=== PATIENT | male | born 1985 | race Caucasian/White ===

== ENCOUNTER 2019-06-04 12:48 | Emergency (ER) | payer OTHER ==
[~2019-06-04] VITALS: Ht 185.4 cm; Wt 101.6 kg
[2019-06-04 13:44] LABS: ABSOLUTE NEUTROPHILS 2.7 thou/uL (1.4-8.2); BASOPHILS 0.7 % (0.0-2.0); EOSINOPHILS 0.5 % (0.0-3.0); HEMATOCRIT 45.9 % (42.0-52.0); HEMOGLOBIN 15.1 gm/dL (14.0-18.0); LYMPHOCYTES 16.2 % (24.0-44.0); MCH 27.1 pg (26.0-34.0); MCHC 32.8 g/dL (28.0-37.0); MCV 82.8 fL (80.0-100.0); MONOCYTES 11.9 % (1.0-8.0); PLATELET COUNT 217 thou/uL (150-400); POLYS 70.7 % (36.0-66.0); RBC 5.55 mil/uL (4.50-6.00); RDW 13.5 % (10.5-14.5); WBC 3.8 thou/uL (4.0-11.0)
[2019-06-04 13:48] VITALS: BP 106/73
[2019-06-04 13:57] LABS: ALBUMIN 3.8 g/dL (3.4-5.0); CREATININE 1.3 mg/dL (0.7-1.3); POTASSIUM 3.5 mmol/L (3.5-5.1); TOTAL BILIRUBIN 0.3 mg/dL (<0.1-1.0); TOTAL PROTEIN 8.6 g/dL (6.4-8.2)
[2019-06-04 14:04] LABS: CALCIUM 8.8 mg/dL (8.5-10.1)
[2019-06-04] MEDS ORDERED: ONDANSETRON HCL4 M2 PO (14:18)
[2019-06-04] MEDS ORDERED: TESSALON PERLE100 MG PO (14:19)
[2019-06-04 14:48] LABS: URINE BILIRUBIN NEGATIVE (Negative); URINE BLOOD NEGATIVE (Negative); URINE CLARITY CLEAR; URINE COLOR YELLOW; URINE GLUCOSE-RANDOM* NEGATIVE (Negative); URINE KETONES NEGATIVE (Negative); URINE LEUKOCYTES-REFLEX NEGATIVE (Negative); URINE NITRITE-REFLEX NEGATIVE (Negative); URINE PROTEIN (DIPSTICK) NEGATIVE (Negative); URINE SPECIFIC GRAVITY <= 1.005 (1.005-1.035); URINE UROBILINOGEN 0.2 E.U./dl (0.2-1.0)
== END 2019-06-04 15:01 | disposition home or self-care (01) ==
LOC: ER 12:48
PROVIDERS: Physician Assistant
DX: R11.2 Nausea with vomiting, unspecified (principal); R05 Cough; R10.13 Epigastric pain; Z88.6 Allergy status to analgesic agent; Z91.013 Allergy to seafood

== ENCOUNTER 2019-10-16 17:03 | Emergency (ER) | payer OTHER ==
[~2019-10-16] VITALS: Ht 188 cm; Wt 98.4 kg
[~2019-10-16 17:03] MED LIST: ONDANSETRON HCL4 M2 PO; TESSALON PERLE100 MG PO
[2019-10-16 17:30] LABS: URINE BILIRUBIN NEGATIVE (Negative); URINE BLOOD NEGATIVE (Negative); URINE CLARITY CLEAR; URINE COLOR YELLOW; URINE GLUCOSE-RANDOM* NEGATIVE (Negative); URINE KETONES NEGATIVE (Negative); URINE LEUKOCYTES-REFLEX NEGATIVE (Negative); URINE NITRITE-REFLEX NEGATIVE (Negative); URINE PROTEIN (DIPSTICK) NEGATIVE (Negative); URINE SPECIFIC GRAVITY >= 1.030 (1.005-1.035); URINE UROBILINOGEN 0.2 E.U./dl (0.2-1.0)
[2019-10-16 17:45] LABS: ABSOLUTE NEUTROPHILS 3.5 thou/uL (1.4-8.2); BASOPHILS 0.7 % (0.0-2.0); EOSINOPHILS 1.4 % (0.0-3.0); HEMATOCRIT 44.7 % (42.0-52.0); HEMOGLOBIN 15.6 gm/dL (14.0-18.0); LYMPHOCYTES 28.4 % (24.0-44.0); MCH 29.1 pg (26.0-34.0); MCHC 34.8 g/dL (28.0-37.0); MCV 83.6 fL (80.0-100.0); PLATELET COUNT 244 thou/uL (150-400); POLYS 62.5 % (36.0-66.0); RBC 5.35 mil/uL (4.50-6.00); RDW 14.1 % (10.5-14.5); WBC 5.6 thou/uL (4.0-11.0)
[2019-10-16 17:55] LABS: CALCIUM 8.7 mg/dL (8.5-10.1); CREATININE 1.1 mg/dL (0.7-1.3)
[2019-10-16 18:01] LABS: TOTAL BILIRUBIN 0.5 mg/dL (<0.1-1.0); TOTAL PROTEIN 8.3 g/dL (6.4-8.2)
[2019-10-16] MEDS ORDERED: NAPROSYN500 MG PO (18:46)
[2019-10-16] MEDS ORDERED: NORFLEX100 MG PO (18:46)
[2019-10-16 19:18] VITALS: BP 122/101
== END 2019-10-16 19:15 | disposition home or self-care (01) ==
LOC: ER 17:03
PROVIDERS: Physician Assistant
DX: S29.012A Strain of muscle and tendon of back wall of thorax, initial encounter (principal); Z88.6 Allergy status to analgesic agent; Z91.013 Allergy to seafood; X50.0XXA Overexertion from strenuous movement or load, initial encounter; Y93.89 Activity, other specified; Y92.89 Other specified places as the place of occurrence of the external cause; Y99.8 Other external cause status

== ENCOUNTER 2020-05-22 22:58 | Emergency (ER) | payer OTHER ==
[~2020-05-22] VITALS: Ht 185.4 cm; Wt 108.0 kg
[~2020-05-22 22:58] MED LIST changes: +NAPROSYN500 MG PO; +NORFLEX100 MG PO
[2020-05-22 23:01] VITALS: BP 130/85
[2020-05-22] MEDS ORDERED: TRAMADOL 50 MG50 MG PO (23:25)
[2020-05-22] MEDS ORDERED: PREDNISONE 20 M20 MG PO (23:25)
== END 2020-05-22 23:46 | disposition home or self-care (01) ==
LOC: ER 22:58
DX: M77.11 Lateral epicondylitis, right elbow (principal); Z88.6 Allergy status to analgesic agent; Z91.013 Allergy to seafood

== ENCOUNTER 2020-07-15 10:51 | Emergency (ER) | payer OTHER ==
[~2020-07-15] VITALS: Ht 185.4 cm; Wt 108.0 kg
[~2020-07-15 10:51] MED LIST changes: +PREDNISONE 20 M20 MG PO; +TRAMADOL 50 MG50 MG PO
[2020-07-15] MEDS ORDERED: ULTRAM 50MG TAB50 MG PO (11:58)
[2020-07-15 12:44] VITALS: BP 154/90
== END 2020-07-15 12:45 | disposition home or self-care (01) ==
LOC: ER 10:51
DX: M25.511 Pain in right shoulder (principal); Z88.6 Allergy status to analgesic agent; Z91.013 Allergy to seafood; Z79.899 Other long term (current) drug therapy; X50.0XXA Overexertion from strenuous movement or load, initial encounter; Y93.89 Activity, other specified; Y92.69 Other specified industrial and construction area as the place of occurrence of the external cause; Y99.9 Unspecified external cause status

== ENCOUNTER 2020-10-31 00:06 | Emergency (ER) | payer OTHER ==
[~2020-10-31] VITALS: Ht 185.4 cm; Wt 112.5 kg
[~2020-10-31 00:06] MED LIST changes: +ULTRAM 50MG TAB50 MG PO
[2020-10-31] MEDS ORDERED: NOHOMEMEDICATIONS (00:34)
[2020-10-31] MEDS ORDERED: MEDROLDOSEPACK PO (01:05)
[2020-10-31] MEDS ORDERED: NORCO5 PO (01:05)
[2020-10-31] MEDS ORDERED: FLEXERIL PO (01:05)
[2020-10-31 02:25] VITALS: BP 131/67
== END 2020-10-31 02:25 | disposition home or self-care (01) ==
LOC: ER 00:06
DX: M54.42 Lumbago with sciatica, left side (principal); Z88.6 Allergy status to analgesic agent; Z91.013 Allergy to seafood; X50.0XXA Overexertion from strenuous movement or load, initial encounter; Y93.89 Activity, other specified; Y92.89 Other specified places as the place of occurrence of the external cause; Y99.0 Civilian activity done for income or pay